=== PATIENT | female | born 1995 ===

== ENCOUNTER 2017-10-08 14:31 | Emergency (ER) | payer OTHER ==
[2017-10-08 14:57] VITALS: BP 124/73; PULSE 100; RESP 16; TEMP 97.8; O2SAT 100
--- NOTE | 2017-10-08 15:34 | ED PDOC ---
HPI: Female Pain Chief Complaint (Provider): vaginal bleedind History Per: Patient History/Exam Limitations: no limitations Onset/Duration Of Symptoms: Hrs Current Symptoms Are (Timing): Gone Now Associated Symptoms: Urinary Symptoms (frequency) Additional Complaint(s): 22 y/o f with PMhx significant only for UTI, presents to ED c/o spotting VB this morning that resolved. Patient recently noticed she was when she did a test at home. LMP 09/04/17. She also c/o urinary frequency for the past 2 days. Denies dysuria, fever, flank pain, vomiting or nausea. Denies pelvic pain. Abnormal Vaginal Bleeding: Yes Last Menstral Period: 09/04/17 <Javed Santiago - Last Filed: 10/08/17 17:31> <Maria Alejandra Prasad - Last Filed: 10/09/17 18:32> Time Seen by Provider: 10/08/17 15:22 Chief Complaint (Nursing): Female Genitourinary Supervising Attending Note - Supervising Attending Note The Documented history was done by the: Physician Manager Special Events, Attending Physician The documented physical exam was done by the: Physician Manager Special Events, Attending Physician - Attestation: I have personally seen and examined this patient.: Yes I have fully participated in the care of the patient.: Yes I have reviewed all pertinent clinical information, including history, physical exam and plan: Yes - Notes: Notes:: Accession No. : [id number] Patient Name / ID : ARNEL VILLAGRAN / [id number] Exam Date : 10/08/2017 16:54:29 ( Approved ) Study Comment : Sex / Age : F / 22Y Creator : Danyell Hamm MD Dictator : Danyell Hamm MD [employer] Maker Helper : Anchorer : Danyell Hamm MD Approver2 : Report Date : 10/08/2017 17:40:41 My Comment : Indication: VB Comparison: None available Technique: Real-time transabdominal pelvic ultrasound was performed. In addition a transvaginal pelvic ultrasound was necessary to better depict pelvic anatomy. Findings: Uterus measures approximately 8.4 x 4.9 x 6.1 cm. Anteverted. Cervix length measures approximately 4.7 cm. There is a single intrauterine fetus present. 3 mm yolk sac. The gestational sac measures 1.1cm and is compatible with a gestational age of 5 weeks 1 day. pole is not visualized at this time. The right ovary measures 3.1 x 2.0 x 3.4 cm. The left ovary measures 3.2 x 1.9 x 2.8 cm. Blood flow was demonstrated to both ovaries. Trace pelvic free fluid, cul-de-sac. Impression: Single intrauterine with estimated gestational age 5 weeks 1 day by gestational sac calculation. pole is not evident at this time. Advise an anomaly screen at 16-18 weeks gestational age <Maria Alejandra Prasad - Last Filed: 10/09/17 18:32> Past Medical History Reviewed: Vital Signs Vital Signs: Last Vital Signs Temp 97.8 F 10/08/17 14:54 Pulse 100 H 10/08/17 14:54 Resp 16 10/08/17 14:54 BP 124/73 10/08/17 14:54 Pulse Ox 100 10/08/17 14:54 - Medical History PMH: No Chronic Diseases - Surgical History Surgical History: No Surg Hx - Family History Family History: States: Unknown Family Hx - Immunization History Hx Tetanus Toxoid Vaccination: No Hx Influenza Vaccination: No Hx Pneumococcal Vaccination: No <Javed Santiago - Last Filed: 10/08/17 17:31> Vital Signs: Last Vital Signs Temp 97.8 F 10/08/17 14:54 Pulse 100 H 10/08/17 14:54 Resp 16 10/08/17 14:54 BP 124/73 10/08/17 14:54 Pulse Ox 100 10/08/17 17:33 <Maria Alejandra Prasad - Last Filed: 10/09/17 18:32> - Home Medications Home Medications: Ambulatory Orders Medication Instructions Recorded Ciprofloxacin [Cipro] 1 tab PO BID #14 tab 01/21/17 Multivit/Folic Acid/I 1 tab PO DAILY #100 tab 10/08/17 [ Plus] - Allergies Allergies/Adverse Reactions: Allergies Allergy/AdvReac Type Severity Reaction Status Date / Time No Known Allergies Allergy Verified 10/08/17 14:54 Review of Systems ROS Statement: Except As Marked, All Systems Reviewed And Found Negative Genitourinary Female: Positive for: Frequency, Vaginal Bleeding <Javed Santiago - Last Filed: 10/08/17 17:31> Physical Exam - Reviewed Vital Signs Reviewed: Yes - Physical Exam Appears: Positive for: Non-toxic, No Acute Distress Skin: Positive for: Normal Color, Warm Eye Exam: Positive for: Normal appearance, EOMI, PERRL Gastrointestinal/Abdominal: Positive for: Normal Exam, Soft. Negative for: Tenderness, Mass, Distended, Guarding, Rebound Back: Negative for: L CVA Tenderness, R CVA Tenderness Extremity: Negative for: Pedal Edema, Calf Tenderness, Swelling Neurologic/Psych: Positive for: Alert, Oriented. Negative for: Motor/Sensory Deficits <Javed Santiago - Last Filed: 10/08/17 17:31> - Laboratory Results Result Diagrams: 10/08/17 16:04 - ECG O2 Sat by Pulse Oximetry: 100 - Progress ED Course And Treament: test +. Urinedip + for blood OB US ordered. US shows a gest sca with no parts visualized. BHCG correlates with GA by LMP CBC, CMP unremarkable. VS WNL <Javed Santiago - Last Filed: 10/08/17 17:31> - Laboratory Results Result Diagrams: 10/08/17 16:04 <Maria Alejandra Prasad - Last Filed: 10/09/17 18:32> Medical Decision Making Medical Decision Making: Episode of spotting vaginal bleeding and + test at home r/o threatened BHCG Uriedip Type&Screen, CBC, GC/Chl <Javed Santiago - Last Filed: 10/08/17 17:31> Medical Decision Making: US demonstrate 5 wk IUP DW pt findings and plan of care. Possibility of threatened miscarriage discussed. <Maria Alejandra Prasad - Last Filed: 10/09/17 18:32> Disposition <Javed Santiago - Last Filed: 10/08/17 17:31> Counseled Patient/Family Regarding: Studies Performed, Diagnosis, Need For Followup, Rx Given - Disposition Disposition: Routine/Home Disposition Time: 18:00 <Maria Alejandra Prasad - Last Filed: 10/09/17 18:32> - Clinical Impression Clinical Impression: First trimester bleeding - Disposition [facility] (CALL TOMORROW TO SETUP CARE SOON POSSIBLE.) Condition: GOOD Prescriptions: Multivit/Folic Acid/I [ Plus] 1 tab PO DAILY #100 tab Instructions: Threatened Miscarriage (ED)
[2017-10-08 16:13] LABS: BASO # 0.2 K/uL (0.0-0.2); BASO % 1.8 % (0.0-2.0); EOS # 0.2 K/uL (0.0-0.7); EOS % 1.6 % (0.0-4.0); HEMATOCRIT 37.7 % (34.0-47.0); LYMPH # 2.6 K/uL (1.0-4.3); LYMPH % 26.1 % (20.0-40.0); MEAN CELL VOLUME 84.3 fl (81.0-99.0); MEAN CORPUSCULAR HEMOGLOBIN 26.8 pg (27.0-31.0); MEAN CORPUSCULAR HGB CONC 31.8 g/dL (33.0-37.0); MEAN PLATELET VOLUME 9.3 fl (7.2-11.7); MONO # 0.9 K/uL (0.0-0.8); MONO % 9.2 % (0.0-10.0); NEUT # 6.1 K/uL (1.8-7.0); NEUT % 61.3 % (50.0-75.0); RED CELL DISTRIBUTION WIDTH 12.6 % (11.5-14.5); WHITE BLOOD COUNT 9.9 K/uL (4.8-10.8)
--- NOTE | 2017-10-08 17:42 | US ---
Indication: VB Comparison: None available Technique: Real-time transabdominal pelvic ultrasound was performed. In addition a transvaginal pelvic ultrasound was necessary to better depict pelvic anatomy. Findings: Uterus measures approximately 8.4 x 4.9 x 6.1 cm. Anteverted. Cervix length measures approximately 4.7 cm. There is a single intrauterine fetus present. 3 mm yolk sac. The gestational sac measures 1.1cm and is compatible with a gestational age of 5 weeks 1 day. pole is not visualized at this time. The right ovary measures 3.1 x 2.0 x 3.4 cm. The left ovary measures 3.2 x 1.9 x 2.8 cm. Blood flow was demonstrated to both ovaries. Trace pelvic free fluid, cul-de-sac. Impression: Single intrauterine with estimated gestational age 5 weeks 1 day by gestational sac calculation. pole is not evident at this time. Advise an anomaly screen at 16-18 weeks gestational age
== END 2017-10-08 19:05 | disposition home or self-care (01) ==
LOC: H.ER 14:31
DX: O20.9 Hemorrhage in early pregnancy, unspecified (principal); Z3A.01 Less than 8 weeks gestation of pregnancy